=== PATIENT | male | born 1990 | race Caucasian/White ===

== ENCOUNTER 2017-02-05 16:30 | Emergency (ER) | payer OTHER ==
[~2017-02-05] VITALS: Ht 172.7 cm; Wt 68.0 kg
[2017-02-05 16:32] VITALS: BP 137/86; PULSE 78; RESP 16; TEMP 98.2; O2SAT 99
--- NOTE | 2017-02-05 17:12 | RADRPT ---
EXAM DATE/TIME: 02/05/2017 16:53 [place] COMPARISON: No previous studies available for comparison. INDICATIONS : Left shoulder pain after falling down stairs today MEDICAL HISTORY : None. SURGICAL HISTORY : None. ENCOUNTER: Initial ACUITY: 1 day PAIN SCORE: 10/10 LOCATION: Left shoulder FINDINGS: Multiple view examination of the left shoulder demonstrates no evidence of fracture or dislocation. The glenohumeral and acromioclavicular joints are maintained. There is normal range of motion betwee n internal and external rotation. Bony mineralization is normal. CONCLUSION: Unremarkable examination of the left shoulder. Geovanni Vela Jr., MD on February 05, 2017 at 17:10 Board Certified Radiologist. This report was verified electronically.
--- NOTE | 2017-02-05 17:55 | PD ---
HPI Chief Complaint: Injury Time Seen by Provider: 17:35 Travel History International Travel<30 days: No Contact w/Intl Traveler<30days: No Traveled to known affect area: No History of Present Illness HPI 26-year-old male presents to the emergency room for evaluation of left shoulder pain after falling down 5 stairs just prior to arrival. Patient states he slipped on his shoes and fell forward. He caught himself with his left arm and states the upward pressure onto his shoulder felt like "3 things tore." He then fell backwards landing on the posterior shoulder. He denies hitting his head or loss of consciousness. Denies any other injuries. Patient has history of labrum tear in the right shoulder and states this feels differently. He denies paresthesias. He has had 3 beers this morning. Patient has not taken anything for pain because he came straight to the emergency room. Denies any chronic medical conditions or daily medications. [facility] Social History Tobacco Use: Yes Review of Systems Except as stated in HPI: all other systems reviewed are Neg Physical Exam Narrative GENERAL: Well-nourished, well-developed male in no acute distress. Afebrile. Ambulatory. SKIN: Focused skin assessment warm/dry. HEAD: Normocephalic. EYES: No scleral icterus. No injection or drainage. NECK: Supple, trachea midline. No JVD or lymphadenopathy. CARDIOVASCULAR: Regular rate and rhythm without murmurs, gallops, or rubs. RESPIRATORY: Breath sounds equal bilaterally. No accessory muscle use. MSK: Extreme tenderness to palpation of the left anterior shoulder. No obvious edema or deformity. 2+ radial pulse. Radial, ulnar, and median intact. Limited range of motion of the shoulder secondary to pain. Slightly improved range of motion with slow or passive range of motion. Data Data Last Documented VS Vital Signs Date Time Temp Pulse Resp B/P (MAP) Pulse Ox O2 Delivery O2 Flow Rate FiO2 02/05/17 16:32 98.2 78 16 137/86 (103) 99 Orders Orders Shoulder, Complete (>2vws) (02/05/17 ) [facility] Medical Decision Making Medical Screen Exam Complete: Yes Emergency Medical Condition: Yes Medical Record Reviewed: Yes Differential Diagnosis Muscle spasm, strain, fracture, dislocation, contusion Narrative Course 26-year-old male presents to the emergency room for evaluation of left shoulder pain and swelling after falling down 5 stairs just prior to arrival. Patient tripped and fell. Denies any other injuries. States he put his left arm out to catch himself and felt that a forward jerking motion "tear 3 things." Physical exam is reassuring. No obvious deformity or edema. Left upper extremity is neurovascularly intact with 2+ radial pulse. Radial, ulnar, and median nerves intact. Motor and jaw motion secondary to pain. X-ray is negative. This is likely internal derangement of the shoulder. He was put in a sling and told not to wear for more than 48 hours. Patient told to follow up with a primary care physician for outpatient MRI if symptoms persist or return for worsening symptoms. He understands and agrees to plan. Diagnosis Primary Impression: Internal derangement of left shoulder Referrals: Primary Care Physician Additional Instructions: Use sling for the next 48 hours. Do not use more than that as it can cause worsening symptoms. Take ibuprofen with food as directed, as needed for pain. Apply ice to the affected area for 20 minutes at a time, as needed for pain and swelling. Follow-up with a primary care physician for outpatient MRI if symptoms persist. Return to the emergency room for worsening symptoms. Med/Other Pt SpecificInfo: Prescription(s) given Disposition: 01 DISCHARGE HOME Condition: Stable Christa Mason Feb 05, 2017 17:55
== END 2017-02-05 18:26 | disposition home or self-care (01) ==
LOC: NEPK 16:30
DX: S49.82XA Other specified injuries of left shoulder and upper arm, initial encounter (principal); W10.9XXA Fall (on) (from) unspecified stairs and steps, initial encounter; Z72.0 Tobacco use
CPT/HCPCS: 73030; 99283